=== PATIENT | male | born 1975 | race Caucasian/White ===

== ENCOUNTER 2018-04-17 13:30 | Emergency (ER) | payer BC ==
[2018-04-17 13:37] VITALS: BP 138/71
--- NOTE | 2018-04-17 14:40 | RAD ---
INDICATION: Right ankle injury COMPARISON: None TECHNIQUE: AP, lateral, and oblique views were obtained. FINDINGS: There is no acute fracture or dislocation. There is lateral soft tissue swelling. There is a plantar calcaneal spur IMPRESSION: NO ACUTE BONY FINDINGS.
--- NOTE | 2018-04-17 17:44 | ED ---
Saba James Elizabeth, scribed for Jammie Mora MD on 04/17/18 at 1446 . Lower Extremity - HPI Summary HPI Summary: This patient is a 42 year old M presenting to [facility] with a chief complaint of right ankle pain since earlier this afternoon. The patient reports that he slipped on a piece of slate, slid and hit his ankle against a rock prior to the onset of the pain. The patient rates the pain 8/10 in severity. Symptoms aggravated by bearing weight. Symptoms alleviated by nothing. Patient reports unable to bear weight. The patient denies any additional symptoms. - History of Current Complaint Chief Complaint: EDExtremityLower Stated Complaint: FALL/RT ANKLE INJURY Time Seen by Provider: 04/17/18 13:41 Hx Obtained From: Patient Mechanism Of Injury: Blunt Trauma - hit his ankle against a rock Onset of Pain: Immediate, Hours, Post Accident Onset/Duration: Still Present Severity Initially: Moderate Severity Currently: Moderate Pain Intensity: 8 Pain Scale Used: 0-10 Numeric Timing: Constant Location: Is Discrete @ - right ankle Associated Signs And Symptoms: Positive: Swelling Aggravating Factor(s): Standing, Ambulation, Movement, Weight Bearing Alleviating Factor(s): Nothing - Allergies/Home Medications Allergies/Adverse Reactions: Allergies Allergy/AdvReac Type Severity Reaction Status Date / Time No Known Allergies Allergy Verified 04/17/18 13:33 PMH/Surg Hx/FS Hx/Imm Hx Respiratory History: Denies: Hx Chronic Obstructive Pulmonary Disease (COPD) Opthamlomology History: Denies: Hx Legally Blind EENT History: Denies: Hx Deafness Infectious Disease History: No Infectious Disease History: Denies: Traveled Outside the [place] in Last 30 Days - Family History Known Family History: Positive: None - Patient denies relevant FHx - Social History Alcohol Use: Occasionally Substance Use Type: Reports: None Smoking Status (MU): Never Smoked Tobacco Review of Systems Negative: Fever Negative: Epistaxis Negative: Cough Positive: Arthralgia - right ankle pain All Other Systems Reviewed And Are Negative: Yes Physical Exam - Summary Physical Exam Summary: Appearance: Well-appearing, Well-nourished Skin: Warm, 2 small abrasions on the right anterior tibialis, 3-4 mm Eyes: Normal ENT: Normal Neck: Supple, nontender Respiratory: Clear to auscultation Cardiovascular: Regular rate, regular rhythm. Normal S1, S2. Abdomen: Soft, nontender Musculoskeletal: Normal, Strength/ROM Intact Extremities: good dorsalis pedis pulse in right foot, swollen right lateral malleolar region, TTP talofibular and talocalcaneal, region Neurological: Normal, A&Ox3 Psychiatric: Normal General: No acute distress Triage Information Reviewed: Yes Vital Signs On Initial Exam: Initial Vitals Temp Pulse Resp BP Pulse Ox 97.4 F 49 18 138/71 100 04/17/18 13:32 04/17/18 13:32 04/17/18 13:32 04/17/18 13:32 04/17/18 13:32 Vital Signs Reviewed: Yes Diagnostics - Vital Signs Vital Signs Temp Pulse Resp BP Pulse Ox 04/17/18 13:32 97.4 F 49 18 138/71 100 - Laboratory Lab Statement: Any lab studies that have been ordered have been reviewed, and results considered in the medical decision making process. - Radiology Right Ankle XR Xray Interpretation: No Acute Changes - IMPRESSION: NO ACUTE BONY FINDINGS. Dr. Mora has reviewed this report. Radiology Interpretation Completed By: Radiologist Lower Extremity Course/Dx - Course Assessment/Plan: right ankle pain- XR right ankle neg for fx. RICE, NSAIDS, and CAM boot - Diagnoses Provider Diagnoses: Right ankle sprain Discharge - Sign-Out/Discharge Documenting (check all that apply): Discharge/Admit/Transfer - Discharge Plan Condition: Stable Disposition: HOME Discharge Disposition Comment: discharge home Patient Education Materials: Ankle Sprain (ED) Referrals: Ashely Carrillo MD [Primary Care Provider] - Additional Instructions: Follow up with primary care physician in 2-3 days. Return to the emergency department with any new or worsening symptoms. - Billing Disposition and Condition Condition: STABLE Disposition: Home The documentation as recorded by the Saba santillan Elizabeth accurately reflects the service I personally performed and the decisions made by , Jammie Mora MD.
== END 2018-04-17 17:30 | disposition home or self-care (01) ==
LOC: ED 13:30
DX: S93.401A Sprain of unspecified ligament of right ankle, initial encounter (principal); W01.198A Fall on same level from slipping, tripping and stumbling with subsequent striking against other object, initial encounter; Y92.9 Unspecified place or not applicable
CPT/HCPCS: 99282